=== PATIENT | female | born 1990 | race Caucasian/White ===

== ENCOUNTER 2017-07-16 19:23 | Emergency (ER) | payer OTHER ==
[~2017-07-16] VITALS: Ht 157.5 cm; Wt 56.7 kg
[~2017-07-16 19:23] MED LIST: CYCLOBENZAPRINE10 MG PO; HYDROCODON-ACE1 EAC3 PO; PRENAPLUS TABL1 EACH PO
== END 2017-07-16 22:45 | disposition home or self-care (01) ==
LOC: ED 19:23
DX: H92.02 Otalgia, left ear (principal); G89.29 Other chronic pain; Z90.89 Acquired absence of other organs; Z98.818 Other dental procedure status; Z79.899 Other long term (current) drug therapy
CPT/HCPCS: 99282

== ENCOUNTER 2023-01-24 08:18 | Emergency (ER) | payer OTHER ==
[~2023-01-24] VITALS: Ht 157.5 cm; Wt 58.3 kg
--- OUTSIDE RECORDS SUMMARY | 2023-01-24 08:20 | XMS ---
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 [facility] VISIT COUNT (12 MO.) 1 BRANDON Woo TOTAL 1 NOTE: Visits indicate total known visits. ED/UCC VISIT TRACKING (12 MO.) 01/24/2023 08:18 BRANDON [place] TYPE: Emergency COMPLAINT: - TROUBLE BREATHING INPATIENT VISIT TRACKING (12 MO.) No inpatient visits to display in this time frame [email or web address]
[2023-01-24] MEDS ORDERED: VENTOLIN HFA18 GM INH (10:06)
[2023-01-24] MEDS ORDERED: PREDNISONE20 MG PO (10:06)
[2023-01-24 10:25] VITALS: BP 108/68
== END 2023-01-24 10:25 | disposition home or self-care (01) ==
LOC: ED 08:18
DX: U07.1 COVID-19 (principal)
CPT/HCPCS: 71045; 87502; 94640; 99284 25; C9803; U0002

== ENCOUNTER 2024-01-21 00:07 | Inpatient (IN) | payer OTHER ==
[~2024-01-21] VITALS: Ht 157.5 cm; Wt 70.8 kg
[~2024-01-21 00:07] MED LIST changes: +PREDNISONE20 MG PO; +VENTOLIN HFA18 GM INH
[2024-01-21] MEDS ORDERED: ondansetron HCL 4 MG/2 ML VIAL IV PRN (00:15)
[2024-01-21] MEDS ORDERED: OXYTOCIN/DEXTROSE 5% 20 UNITS/100 ML BAG IV SCH (00:15)
[2024-01-21] MEDS ORDERED: CALCIUM CARBONATE 500 MG CHEW PO PRN ×2 (00:15→14:45)
[2024-01-21] MEDS ORDERED: MAGNESIUM HYDROXIDE/AL HYDROX 30 ML CUP PO PRN ×2 (00:15→14:45)
[2024-01-21] MEDS ORDERED: LACTATED RINGER'S 1,000 ML IV PRN (00:15)
[2024-01-21] MEDS ORDERED: LACTATED RINGER'S 1,000 ML IV SCH (00:15)
[2024-01-21] MEDS ORDERED: miSOPROStoL 25 MCG TAB PV SCH (00:15)
[2024-01-21] MEDS ORDERED: OXYTOCIN/0.9 % SODIUM CHLORIDE 30 UNITS/500 ML BAG IV SCH (00:15)
[2024-01-21 00:28] VITALS: BP 128/79
[2024-01-21 00:54] LABS: HEMATOCRIT 28.7 % (35.0-50.0); HEMOGLOBIN 9.7 g/dL (12.0-18.0); MCH 28.4 (27-36); MCHC 33.8 g/dl (30-36); RBC 3.41 M/ul (4.3-5.7); RDW 13.8 (10.5-15.0)
[2024-01-21 01:19] LABS: AMPHETAMINES, URINE NEGATIVE (NEGATIVE); BARBITURATES, URINE NEGATIVE (NEGATIVE); BENZODIAZEPINE, URINE NEGATIVE (NEGATIVE); BUPRENORPHINE, URINE NEGATIVE (NEGATIVE); CANNABINOID, URINE NEGATIVE (NEGATIVE); COCAINE, URINE NEGATIVE (NEGATIVE); ECSTASY, URINE NEGATIVE (NEGATIVE); FENTANYL, URINE NEGATIVE (NEGATIVE); METHADONE, URINE NEGATIVE (NEGATIVE); OPIATES, URINE NEGATIVE (NEGATIVE); OXYCODONE, URINE NEGATIVE (NEGATIVE); PHENCYCLIDINE, URINE NEGATIVE (NEGATIVE)
[2024-01-21 01:27] LABS: ABO O; ANTIBODY SCREEN NEGATIVE; RH POSITIVE
[2024-01-21] MEDS ORDERED: HYDROmorphone HCL 1 MG/ML SYR IV ONE (14:30)
[2024-01-21] MEDS ORDERED: HYDROCODONE/ACETA 5/325 TAB PO PRN (14:45)
[2024-01-21] MEDS ORDERED: WITCH HAZEL/GLYCERIN 1 EA PAD TOP PRN (14:45)
[2024-01-21] MEDS ORDERED: HYDROCORTISONE ACETATE 25 MG SUPP PR PRN (14:45)
[2024-01-21] MEDS ORDERED: IBUPROFEN 600 MG TAB PO PRN (14:45)
[2024-01-21] MEDS ORDERED: MAGNESIUM HYDROXIDE 30 ML UDC PO PRN (14:45)
[2024-01-21] MEDS ORDERED: OXYTOCIN/0.9 % SODIUM CHLORIDE 500 ML IV SCH (14:45)
[2024-01-21] MEDS ORDERED: ACETAMINOPHEN 325 MG TAB PO PRN (14:45)
[2024-01-21] MEDS ORDERED: BENZOCAINE 60 ML AEROSOL TOP PRN (14:45)
[2024-01-21] MEDS ORDERED: OXYCODONE/APAP 5/325 TAB PO PRN (14:45)
[2024-01-21] MEDS ORDERED: SENNOSIDES/DOCUSATE 1 EA TAB PO SCH (21:00)
[2024-01-22 05:46] LABS: HEMATOCRIT 25.3 % (35.0-50.0); HEMOGLOBIN 8.2 g/dL (12.0-18.0); MCH 27.9 (27-36); MCHC 32.7 g/dl (30-36); MCV 85.4 fl (81-99); RBC 2.96 M/ul (4.3-5.7); RDW 13.8 (10.5-15.0)
--- NOTE | 2024-01-22 15:27 | PR ---
[facility] [address] [facility] [place], [place] [address] Signed PP Progress Notes Datetime Report Generated by CPN: 01/22/2024 15:27 SUBJECTIVE: [id number] Pain: Within Normal Limits Nausea/Vomiting: Denies Flatus: Yes Bowel Movement: No Vital Signs: [id number] Vital Signs: Reviewed; Within Normal Limits Cardiovascular: Normal Respiratory: Normal Abdomen/Uterus: Normal Lochia: Normal Vulva/Perineum: Not Done Breasts: Not Done CVA Tenderness: Normal Extremities: Normal Incision: Not Applicable Progress: Normal Exam Comments: Fundus firm U-2 nontender IMPRESSION/PLAN/PROCEDURES: [id number] Impression: Normal Progression Plan: Discharge Progress Notes: Pt seen and examined. Doing well. Ambulating, voiding, and tolerating full diet. Pain moderate and requiring few doses of norco. Lochia minimal. well. No other concerns. Desires d/c home. Planning micronor for pp contraception Signing Physician: Mahendra Callaway DO Copies: ~ *Electronically Signed* 01/22/24 1527 MAHENDRA CALLAWAY (MANPREET) DO PATIENT NAME: KIYA SANCHEZ PROGRESS NOTE DATE OF : 89 PHYSICIAN: MAHENDRA CALLAWAY) DO RPT #: [id number] REPORT IS CONFIDENTIAL AND NOT TO BE RELEASED WITHOUT AUTHORIZATION
== END 2024-01-22 15:40 | disposition home or self-care (01) | DRG 807 ==
LOC: FBC 00:07
PROVIDERS: ADMIT Obstetrics & Gynecology; ATTEND Obstetrics & Gynecology
PROC: 10E0XZZ Delivery of Products of Conception, External Approach (ICD-10-PCS; principal; 2024-01-21)
PROC: 10907ZC Drainage of Amniotic Fluid, Therapeutic from Products of Conception, Via Natural or Artificial Opening (ICD-10-PCS; 2024-01-21)
DX: O80 Encounter for full-term uncomplicated delivery (principal); Z37.0 Single live birth; Z3A.39 39 weeks gestation of pregnancy
CPT/HCPCS: 36415; 80307; 85027; 86850; 86900; 86901; A9270; J1170; J2590; J7121